=== PATIENT | male | born 1995 | race Caucasian/White ===

== ENCOUNTER 2022-10-12 07:52 | Day surgery (SDC) | payer OTHER ==
[~2022-10-12] VITALS: Ht 185.4 cm; Wt 113.4 kg
[2022-10-12] MEDS ORDERED: LIDOCAINE 1% 500 MG/50 ML VIAL ONE ×2 (08:28→09:10)
[2022-10-12] MEDS ORDERED: BUPIVACAINE-MPF/EPI 0.25% 30 ML VIAL INJ ONE (08:28)
[2022-10-12] MEDS ORDERED: SEVOFLURANE 250 ML BTL INH ONE (09:12)
[2022-10-12] MEDS ORDERED: fentaNYL citrate 0.05 MG/ML VIAL ONE (09:19)
[2022-10-12] MEDS ORDERED: ONDANSETRON 4 MG/2 ML VIAL ONE (10:05)
[2022-10-12] MEDS ORDERED: KETOROLAC 30 MG/ML VIAL ONE (10:05)
[2022-10-12] MEDS ORDERED: SUCCINYLCHOLINE CHLORIDE 200 MG/10 ML VIAL IVP ONE (10:06)
[2022-10-12] MEDS ORDERED: PROPOFOL 200 MG/20 ML VIAL IV ONE ×2 (10:06)
[2022-10-12] MEDS ORDERED: LACTATED RINGERS 1,000 ML IV SCH (10:10)
[2022-10-12] MEDS ORDERED: HYDROmorphone 1 MG/ML AMP IVP PRN (10:10)
[2022-10-12] MEDS ORDERED: METOCLOPRAMIDE 10 MG/2 ML INJ VIAL IVP PRN (10:11)
[2022-10-12] MEDS ORDERED: hydrALAZINE 20 MG/ML VIAL IVP PRN (10:11)
[2022-10-12] MEDS ORDERED: LABETALOL 20 MG/4 ML VIAL IVP PRN (10:11)
[2022-10-12] MEDS ORDERED: ATROPINE 0.4 MG/ML VIAL ONE (10:18)
== END 2022-10-12 10:58 | disposition home or self-care (01) ==
LOC: MDS 07:52 → MMU 07:52 → MDS 10:58
PROVIDERS: ATTEND Surgery
DX: K64.2 Third degree hemorrhoids (principal); Z98.890 Other specified postprocedural states
CPT/HCPCS: 46260; 71045; J0330; J0461; J1885; J2001; J2405; J2704; J3010; J3490; J7120